=== PATIENT | female | born 1980 | race Caucasian/White ===

== ENCOUNTER 2018-03-08 16:02 | Emergency (ER) | payer SELFPAY ==
[~2018-03-08] VITALS: Ht 170.2 cm; Wt 51.2 kg
[2018-03-08 16:10] VITALS: BP 113/82
[2018-03-08] MEDS ORDERED: PROPARACAINE OPHTH 0.5%, 15ML ONE (16:29)
[2018-03-08] MEDS ORDERED: FLUORESCEIN/BENOXINATE 5 ML DROPS OP ONE (16:30)
[2018-03-08] MEDS ORDERED: PROPARACAINE OPHTH 0.5%, 15ML EACHEYE ONE (16:30)
[2018-03-08] MEDS ORDERED: PLEASE ENTER ALLERGIES MC SCH (16:30)
== END 2018-03-08 17:06 | disposition home or self-care (01) ==
LOC: ED 17:00
DX: H10.023 Other mucopurulent conjunctivitis, bilateral (principal); F17.200 Nicotine dependence, unspecified, uncomplicated
CPT/HCPCS: 99283

== ENCOUNTER 2019-08-30 21:43 | Emergency (ER) | payer SELFPAY ==
[~2019-08-30] VITALS: Ht 167.6 cm; Wt 51.8 kg
[2019-08-30 21:51] VITALS: BP 118/86
--- NOTE | 2019-08-30 22:40 | NUR ---
Went in patient room to collect urine sample. Pt not in room at this time
--- NOTE | 2019-08-30 22:51 | NUR ---
Still unable to locate patient.
== END 2019-08-30 22:52 | disposition left against medical advice (07) ==
LOC: ED 22:17
DX: R30.0 Dysuria (principal); F17.210 Nicotine dependence, cigarettes, uncomplicated
CPT/HCPCS: 99281; 99406

== ENCOUNTER 2020-03-10 21:52 | Emergency (ER) | payer MEDICAID ==
[~2020-03-10] VITALS: Ht 170.2 cm; Wt 54.6 kg
[2020-03-10] MEDS ORDERED: DIPH,PERTUSS(ACELL),TET VAC/PF 0.5 ML IM-VACC ONE (23:00)
[2020-03-10] MEDS ORDERED: LIDOCAINE 1%-EPI 1:100K, 20ML SQ ONE ×2 (23:00→23:30)
[2020-03-10 23:19] VITALS: BP 133/98
[2020-03-10] MEDS ORDERED: IBUPROFEN 600 MG TABLET PO ONE (23:30)
[2020-03-10] MEDS ORDERED: OXYcodone/APAP 5/325MG TABLET PO ONE (23:30)
--- NOTE | 2020-03-10 23:30 | NUR ---
PT CAME IN FOR ABCESS IN RIGHT ARM PIT, STARTED OVER A WEEK AGO AND HAS GOTTEN INCREASINGLY WORSE. PT NAD, CMS INTACT, MEDICATED PER MAR. DENIES ADDITIONAL COMPLAINTS. TDAP LAST YEAR. WCTM PLACE ON SPO2/BP MONITORING PAVITHRA HURLEY AT BS FOR EVAL AND POC.
[2020-03-10] MEDS ORDERED: IBUPROFEN 600 MG TABLET ONE (23:32)
[2020-03-10] MEDS ORDERED: OXYcodone/APAP 5/325MG TABLET ONE (23:32)
[2020-03-10] MEDS ORDERED: LIDOCAINE 1%-EPI 1:100K, 20ML ONE (23:32)
--- NOTE | 2020-03-11 00:26 | NUR ---
Patient given discharge instructions and they have confirmed that they understand the instructions. Patient ambulatory with steady gait. NO BELONGINGS LEFT IN ROOM AFTER DC, NAD, DENIES ADDITIONAL NEEDS AT THIS TIME, GIVEN TAXI VOUCHER.
== END 2020-03-11 00:53 | disposition home or self-care (01) ==
LOC: ED 23:30
DX: L02.411 Cutaneous abscess of right axilla (principal); F17.210 Nicotine dependence, cigarettes, uncomplicated
CPT/HCPCS: 10061; 87070; 87077; 87147; 87205; 99284; 99406